=== PATIENT | male | born 1980 | race Caucasian/White ===

== ENCOUNTER 2022-04-18 07:28 | Emergency (ER) | payer OTHER, SELFPAY ==
[2022-04-18 07:32] VITALS: BP 163/104; PULSE 85; RESP 16; TEMP 36.6; O2SAT 99
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
== END 2022-04-18 09:06 | disposition home or self-care (01) ==
PROVIDERS: Emergency Provider Student in an Organized Health Care Education/Training Program
DX: M54.50 Low back pain, unspecified (principal); I10 Essential (primary) hypertension
CPT/HCPCS: 99283

== ENCOUNTER 2022-11-19 12:09 | Emergency (ER) | payer OTHER, SELFPAY ==
[2022-11-19 12:11] VITALS: BP 164/124; PULSE 119; RESP 20; TEMP 36.9; O2SAT 98
--- NOTE | 2022-11-19 12:30 | RT.EKG_ITS ---
APPROVED REPORT Exam: Resting ECG Reason for Exam: chest pain Patient Location: E HR:106 bpm ECG Measurements Heart Rate 106 AXIS LA 131 P 47 QRSd 92 QRS -7 QT 358 T 42 QTc 477 Conclusion Sinus tachycardia...rate> 99 Left atrial enlargement...P, P'>60mS, <-0.15mV V1 Probable left ventricular hypertrophy...multiple LVH criteria. Sinus. No STEMI. I have reviewed and interpreted ECG and agree with software generated interpretation.
--- NOTE | 2022-11-19 12:51 | W.ED.GENAD ---
Discharge Plan Disposition Patient Disposition: Home Condition: Improving Discharge Details Clinical Impression: COVID-19 Primary Care Provider: Luzma Weems ED Provider: Frida Nava Home Meds and New Rx's Prescriptions: Continued omeprazole 20 mg capsule,delayed release(DR/EC) 20 mg PO DAILY PRN propranolol 20 mg tablet 20 mg PO TID PRN loratadine [Claritin] 10 mg tablet 10 mg PO DAILY PRN (DME) syringe (disposable) 3 mL syringe See Rx Instructions .ROUTE Rx Instructions: Use for once weekly testosterone injection (DME) syringe with needle, safety 3 mL 22 gauge x 1 1/2 syringe See Rx Instructions .ROUTE Rx Instructions: For use with once weekly injection of testosterone losartan 50 mg Tablet 75 mg PO DAILY escitalopram oxalate 10 mg Tablet 10 mg PO DAILY hydrochlorothiazide 12.5 mg Tablet 12.5 mg PO DAILY testosterone cypionate 50 mg/mL Oil 200 mg IM QWEEK Rx Instructions: saturdays. Discharge Instructions Instructions: COVID-19 (Coronavirus Disease 2019) (ED) Additional Instructions: You tested positive for the COVID-19 virus today. The remainder of your blood tests and imaging today are reassuring and show no evidence of acute concerning or significant findings. Drink plenty of fluids and get plenty of rest. Alternate tylenol and motrin as needed and directed for pain. Follow-up with your primary care doctor in 1 week. Return to the emergency department with any worsening or new concerning symptoms. Stand Alone Forms: Work Release Discharge Data Discharge Physician: Frida Nava Medical Decision Making 42-year-old male who is unvaccinated for COVID presents with 3 weeks of generalized fatigue, body aches, dry cough and sore throat. Blood pressure high on arrival, 164/124. Heart rate 110s. He states he had an energy drink prior to arrival. He has normal respiratory rate and oxygen saturation and appears comfortable and nontoxic with no signs of respiratory distress. He is speaking in full sentences. No acute findings on ENT exam. Lungs clear bilaterally. Fluvid obtained on arrival and positive for COVID. Negative influenza and RSV. Considering patient's tachycardia and complaint of intermittent chest pain, will obtain screening labs and CT chest to rule out PE and give bolus IV fluids and IV Tylenol. EKG notes a rate of 106, sinus and no ischemic findings. Labs and imaging reviewed and unremarkable. Normal white blood cell count. Normal electrolytes. Troponin negative. CT chest negative for PE. Patient reassessed and he feels better and feels comfortable going home. Discussed with patient that he is outside the window for paxlovid and monoclonal antibody infusion no longer indicated recommended. Patient appears comfortable and in no acute distress. Advised to follow up with the primary care doctor for re-evaluation. Usual and customary return precautions given prior to discharge. Medical Records Medical records reviewed: Yes I reviewed the patient's medical records. Imaging Data Radiologic Study: Radiologist's impression: CT CHEST PE CTA CLINICAL HISTORY: ? chest pain, r/o PE. TECHNIQUE:? Imaging Protocol:? Axial CT angiography was performed with multi-slice acquisition and multi-planar reconstructions as well as axial, coronal and sagittal MIP reconstructions. CONTRAST MATERIAL:? Intravenous: Omnipaque 350 Contrast volume:100 ml COMPARISON:? No exams were available for comparison FINDINGS: Pulmonary Arteries: No evidence of filling defect to suggest pulmonary emboli. Tracheobronchial tree: Patent where visualized. Mediastinum and Esmer: No dominant adenopathy or fluid collection. Pulmonary parenchyma: No consolidation or dominant measurable mass. Pleura: No effusion or pneumothorax. Heart: The heart is not dilated. No coronary artery calcifications are seen. Aorta: Thoracic aorta non-dilated.? No aneurysm.? No dissection.? Upper abdomen:? Unremarkable. Bones: Unremarkable for age. Tubes, Catheters, and Lines: None IMPRESSION: No evidence of pulmonary embolism or other acute abnormality..? Lab Data Lab results reviewed: Yes I reviewed the patient's lab results. Labs: Laboratory Tests Range/Units 11/19/22 11/19/22 11/19/22 12:35 14:13 14:13 WBC (4.4-10.8) 10^3/uL 6.95 RBC (4.36-5.78) 10^6/uL 5.99 H Hgb (13.5-17.5) g/dL 12.6 L Hct (40.0-50.0) % 43.4 MCV (80-95) fL 73 L MCH (27.0-33.0) pg 21.0 L MCHC (32.0-36.0) % 29.0 L RDW (11.8-14.1) % 17.9 H Plt Count (130-400) 10^3/uL 260 MPV (8.0-11.0) fL 9.1 Immature Gran % 0.4 Neutrophils % 61.7 Lymphocytes % 25.9 Monocytes % 9.1 Eosinophils % 2.3 Basophils % 0.6 Nucleated RBC % (0.0-0.3) % 0.0 Absolute Neutrophils (1.2-6.7) 10^3/uL 4.29 Absolute Lymphocytes (1.2-3.4) 10^3/uL 1.80 Absolute Monocytes (0.1-0.8) 10^3/uL 0.63 Absolute Eosinophils (0.0-0.7) 10^3/uL 0.16 Absolute Basophils (0.0-0.2) 10^3/uL 0.04 RBC Morphology See Below Microcytosis 2+ Sodium (136-145) mmol/L 136 Potassium (3.5-5.1) mmol/L 3.5 Chloride (98-107) mmol/L 98 Carbon Dioxide (21.0-32.0) mmol/L 29.2 Anion Gap (3-11) mmol/L 8.8 BUN (7-18) mg/dL 14 Creatinine (0.70-1.30) mg/dL 1.1 Est GFR (CKD-EPI 2020) (mL/min/1.73m2) 84.89 Glucose (74-106) mg/dL 93 Calcium (8.5-10.1) mg/dL 9.0 Magnesium (1.8-2.4) mg/dL 2.2 Total Bilirubin (0.2-1.0) mg/dL 0.4 AST (15-37) U/L 35 ALT (16-63) U/L 40 Alkaline Phosphatase (46-116) U/L 71 Troponin I (<or=60) ng/L < 50 Total Protein (6.4-8.2) g/dL 9.1 H Albumin (3.4-5.0) g/dL 4.3 COVID-19 Source Nasopharynx SARS-CoV-2 (PCR) (Negative) Positive A Influenza Type A (PCR) (Negative) Negative Influenza Type B (PCR) (Negative) Negative RSV (PCR) (Negative) Negative ECG Data Attestation: I personally reviewed and interpreted this ECG (s) as follows: Interpretation: Rate of 106, sinus, normal intervals, no ischemic findings. HPI General Mode of arrival: ambulatory. Date/Time Provider Initiated Documentation: 11/19/22 12:10. Limitations to Documentation: no limitations. Information obtained by: patient. HPI Narrative: Patient is a 42-year-old male who presents to the ED with a complaint of fatigue, nasal congestion, cough and sore throat for the past 3 weeks. He states he is unvaccinated for COVID and has not tested himself for COVID or influenza. He states his cough is mainly dry. Patient also admits to occasional substernal and left-sided chest pain for the past few weeks but denies any at present. He denies any significant shortness of breath, leg pain or swelling, fever, abdominal pain, nausea, vomiting, diarrhea or urinary symptoms. Related Data Home Medications Medication Instructions Recorded Confirmed escitalopram oxalate 10 mg tablet 10 mg PO DAILY 04/18/22 11/19/22 hydrochlorothiazide 12.5 mg tablet 12.5 mg PO DAILY 04/18/22 11/19/22 losartan 50 mg tablet 75 mg PO DAILY 04/18/22 11/19/22 testosterone cypionate 50 mg/mL 200 mg IM QWEEK 04/18/22 11/19/22 intramuscular oil loratadine 10 mg tablet (Claritin) 10 mg PO DAILY PRN 08/30/22 11/19/22 omeprazole 20 mg capsule,delayed 20 mg PO DAILY PRN 08/30/22 11/19/22 release propranolol 20 mg tablet 20 mg PO TID PRN 08/30/22 11/19/22 syringe (disposable) 3 mL 08/30/22 syringe with needle, safety 3 mL 08/30/22 22 gauge x 1 1/2 Allergies Allergy/AdvReac Type Severity Reaction Status Date / Time bismuth subsalicylate Allergy Unverified 11/19/22 12:16 [From Pepto-Bismol] Latex, Natural Rubber Allergy Unverified 11/19/22 12:16 morphine Allergy Unverified 11/19/22 12:16 General Stated Complaint: RespSymp MARY JO: 4 Review of Systems All systems reviewed & are unremarkable except as noted in HPI and below Constitutional Constitutional: Reports as per HPI, Reports body ache(s), Denies chills, Reports fatigue and Denies fever(s) Eyes Eyes: Denies blurry vision ENT Ears, Nose, Mouth, and Throat: Denies dizziness, Reports sore throat and Denies throat swelling Cardiovascular Cardiovascular: Reports chest pain and Denies dyspnea Respiratory Respiratory: Reports cough and Denies dyspnea Gastrointestinal Gastrointestinal: Denies abdominal pain, Denies diarrhea and Denies vomiting Genitourinary Genitourinary: Denies hematuria and Denies dysuria Musculoskeletal Musculoskeletal: Denies back pain and Denies numbness Integumentary/Breasts Skin/Breast: Denies lesions and Denies rash Neurologic Neurologic: Denies dizziness, Denies localized weakness and Denies numbness Endocrine Endocrine: Reports fatigue Allergic/Immunologic Allergic/Immunologic: Denies throat swelling PFSH All Active Problems (Updated 11/19/22 @ 15:52 by Frida Nava DO) COVID-19 (Acute) Hypotestosteronism (Acute) Congenital anomaly of ear (Acute) Allergic rhinitis (Acute) Hypertension (Chronic) Social phobia (Acute) Anxiety (Chronic) Depression (Chronic) Hyperlipidemia (Acute) Medical History (Updated 11/19/22 @ 15:52 by Frida Nava DO) Gastrointestinal hemorrhage associated with intestinal diverticulitis Incisional hernia Surgical History (Updated 08/28/22 @ 12:06 by Aurelia Little) History of colectomy (10/17/16) History of hernia repair (11/26/17) Family History (Updated 08/30/22 @ 16:45 by Carolyn Borden) Mother Depression Hypertension Anxiety Father Diabetes Hypertension Social History (Updated 08/28/22 @ 11:48 by Aruelia Little) Smoking/Tobacco Use Status: Never Smoking risk assessment performed?: Yes Alcohol Intake: current Alcohol Intake frequency: 0-2 drinks per day Alcohol type: beer Drug use: Occasionally Substance use type: marijuana Details: CBD oil Adopted: No Caregiver/Support person: No Foster care: No Household members: spouse Housing: house Number of Children: 0 number of grandchildren: 0 Communication Needs: Corrective Lenses Education Level: high school Do you need help understanding health information?: Rarely 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 Pets and animals: Yes Pets and animals: cat(s) and dog(s) Sexually active: Yes Do you think of yourself as: straight/heterosexual Current gender identity: male What is your relationship status?: How often do you talk on the phone with friends or family?: never How often do you get together with friends or relatives?: never Panel score (0-1 are the most socially isolated patients): 1 NHANES result reviewed/action taken: No What type of physical activity do you participate in: none Marycarmen/Uatsdin: None Special marycarmen needs: No Seatbelt use: sometimes Helmet use: Yes Helmet use: always Drive intox or ride w/intox train driver: No Do you feel safe at home: Yes Do you feel safe in your relationship?: Yes Exam Const General: cooperative and no acute distress Orientation: alert, awake and oriented x3 HENMT Head: normal to inspection Ears: hearing grossly normal bilaterally, external ears normal and TM's normal bilaterally Face and sinus: normal facial exam Mouth: oral mucosae normal Throat: posterior oropharynx normal Eyes General: appearance normal, both eyes and all related structures Pupils: PERRL EOM: EOM intact bilaterally Neck Neck: normal visual inspection and No submandibular swelling Lymphatic: no lymphadenopathy noted Chest Chest: normal inspection of the chest and no tenderness Resp Effort & Inspection: normal respiratory effort and able to speak in complete sentences Auscultation: clear to auscultation bilaterally Cardio Rate: tachycardic Rhythm: regular rhythm GI Inspection: normal to inspection Palpation: soft Back/Spine/Pelvis Thoracic/Lumbar Spine: thoracic and lumbar spine normal to inspection Skin General skin exam: no rashes or lesions noted Neuro General: patient alert, patient awake and patient oriented x3 Cognition: normal cognition Speech: speech normal Motor: muscle tone normal throughout Sensory Exam: no sensory deficits noted Extrem General: full ROM Psych Appearance: grossly normal Mental Status: mental status grossly normal Speech and Movement: speech and movement normal Affect: normal affect Course Vital Signs Vital signs: Vital Signs Temperature 98.4 F 11/19/22 12:11 Pulse 119 H 11/19/22 12:11 Respiratory Rate 20 11/19/22 12:11 Blood Pressure 164/124 H 11/19/22 12:11 Pulse Oximetry 98 11/19/22 12:11 Temperature 98.4 F 11/19/22 12:11 Temperature Source Temporal Artery Scan 11/19/22 12:11 Pulse 119 H 11/19/22 12:11 Respiratory Rate 20 11/19/22 12:11 Blood Pressure 164/124 H 11/19/22 12:11 Blood Pressure Position Supine 11/19/22 12:11 Pulse Oximetry 98 11/19/22 12:11 Oxygen Delivery Method Room Air 11/19/22 12:11 Oxygen Flow Rate 0 11/19/22 12:11 Pain Level 1 11/19/22 12:11
[2022-11-19 13:23] VITALS: BP 139/98; PULSE 115; TEMP 36.7; O2SAT 98
[2022-11-19 13:38] LABS: Influenza A PCR Negative (Negative); Influenza B PCR Negative (Negative); RSV PCR Negative (Negative)
[2022-11-19 13:48] LABS: Source Nasopharynx
[2022-11-19 13:50] LABS: COVID-19 PCR Positive (Negative)
--- NOTE | 2022-11-19 14:00 | DI.CT_ITS ---
Exam(s) CT CHEST PE CTA EXAM: CT CHEST PE CTA CLINICAL HISTORY: chest pain, r/o PE. TECHNIQUE: Imaging Protocol: Axial CT angiography was performed with multi-slice acquisition and mu lti-planar reconstructions as well as axial, coronal and sagittal MIP reconstructions. CONTRAST MATERIAL: Intravenous: Omnipaque 350 Contrast volume:100 ml COMPARISON: No exams were available for comparison FINDINGS: Pulmonary Arteries: No evidence of filling defect to suggest pulmonary emboli. Tracheobronchial tree: Patent where visualized. Mediastinum and Esmer: No dominant adenopathy or fluid collection. Pulmonary parenchyma: No consolidation or dominant measurable mass. Pleura: No effusion or pneumothorax. Heart: The heart is not dilated. No coronary artery calcifications are seen. Aorta: Thoracic aorta non-dilated. No aneurysm. No dissection. Upper abdomen: Unremarkable. Bones: Unremarkable for age. Tubes, Catheters, and Lines: None IMPRESSION: No evidence of pulmonary embolism or other acute abnormality.. RADIATION DOSE DELIVERED: 500.54mGy.cm Total DLP DATA REPOSITORY: All CT scans at this facility are submitted to the National Radiology Data Registry (NRDR) Dose Index Registry (DIR) with the [employer] (A[employer]). RADIATION OPTIMIZATION: All CT scans at this facility use at least one of these dose optimization te chniques: automated exposure control; mA and/or kV adjustment per patient size (includes targeted exa ms where dose is matched to clinical indication); or iterative reconstruction.
[2022-11-19 14:20] LABS: Abs Immature Grans 0.03 10^3/uL (0.0-0.06); Absolute Basophil Count 0.04 10^3/uL (0.0-0.2); Absolute Eosinophil Count 0.16 10^3/uL (0.0-0.7); Absolute Monocyte Count 0.63 10^3/uL (0.1-0.8); Absolute Neutrophil Count 4.29 10^3/uL (1.2-6.7); Basophils % 0.6; Eosinophils % 2.3; HCT 43.4 % (40.0-50.0); HGB 12.6 g/dL (13.5-17.5); Immature Grans % 0.4; Lymphocytes % 25.9; MCV 73 fL (80-95); MPV 9.1 fL (8.0-11.0); Monocytes % 9.1; Neutrophils % 61.7; Platelet Count 260 10^3/uL (130-400); RBC 5.99 10^6/uL (4.36-5.78); RDW 17.9 % (11.8-14.1); RDW-SD 44.7 fL; WBC 6.95 10^3/uL (4.4-10.8)
[2022-11-19] MEDS: Normal Saline 1,000 ML 1000 ML IV (14:23)
[2022-11-19 14:33] LABS: Diff Comment RBC Morph Reviewed; Microcytosis 2+
[2022-11-19 14:47] LABS: ALT 40 U/L (16-63); AST 35 U/L (15-37); Albumin 4.3 g/dL (3.4-5.0); Alkaline Phosphatase 71 U/L (46-116); Anion Gap 8.8 mmol/L (3-11); BUN 14 mg/dL (7-18); Bilirubin, Total 0.4 mg/dL (0.2-1.0); CO2 29.2 mmol/L (21.0-32.0); CREATININE 1.1 mg/dL (0.70-1.30); Chloride 98 mmol/L (98-107); Estimated GFR 84.89 (mL/min/1.73m2); Glucose 93 mg/dL (74-106); Magnesium 2.2 mg/dL (1.8-2.4); Potassium 3.5 mmol/L (3.5-5.1); Sodium 136 mmol/L (136-145); Total Protein 9.1 g/dL (6.4-8.2); Troponin I < 50 ng/L (<or=60)
[2022-11-19] MEDS: Omnipaque 350 MG/ML 500 ML BTL-Imaging package IJ (15:26)
[2022-11-19] MEDS: Normal Saline Flush 10 ML SYR IVP (15:27)
[2022-11-19] MEDS: Normal Saline - Diluent 50 ML VIAL IV (15:27)
[2022-11-19] MEDS: ACETAMINOPHEN 1,000 MG/100 ML BTL 400 MG IVPB (15:44)
[2022-11-19 16:24] VITALS: BP 139/98; PULSE 115; TEMP 36.7; O2SAT 98
== END 2022-11-19 16:25 | disposition home or self-care (01) ==
PROVIDERS: Emergency Provider Physician Assistant; PCP Student in an Organized Health Care Education/Training Program
DX: U07.1 COVID-19 (principal); R00.0 Tachycardia, unspecified; Z28.310 Unvaccinated for COVID-19
CPT/HCPCS: 71275; 80053; 87637; 93005; 96361; 96374; 99285; 83735; 84484; 85025; 93010; J0131

== ENCOUNTER 2022-12-21 02:02 | Outpatient (CLI) | payer OTHER, SELFPAY ==
[2022-12-21 08:38] LABS: Abs Immature Grans 0.02 10^3/uL (0.0-0.06); Absolute Basophil Count 0.02 10^3/uL (0.0-0.2); Absolute Eosinophil Count 0.12 10^3/uL (0.0-0.7); Absolute Lymphocyte Count 1.78 10^3/uL (1.2-3.4); Absolute Monocyte Count 0.44 10^3/uL (0.1-0.8); Absolute Neutrophil Count 2.44 10^3/uL (1.2-6.7); Basophils % 0.4; Eosinophils % 2.5; HCT 41.6 % (40.0-50.0); HGB 11.8 g/dL (13.5-17.5); Immature Grans % 0.4; Lymphocytes % 36.9; MCH 20.7 pg (27.0-33.0); MCHC 28.4 % (32.0-36.0); MCV 73 fL (80-95); MPV 9.3 fL (8.0-11.0); Monocytes % 9.1; Neutrophils % 50.7; Platelet Count 215 10^3/uL (130-400); RBC 5.69 10^6/uL (4.36-5.78); RDW 18.6 % (11.8-14.1); RDW-SD 46.3 fL; WBC 4.82 10^3/uL (4.4-10.8)
[2022-12-21 09:23] LABS: ALT 43 U/L (16-63); AST 31 U/L (15-37); Albumin 4.1 g/dL (3.4-5.0); Alkaline Phosphatase 70 U/L (46-116); Anion Gap 9.1 mmol/L (3-11); BUN 10 mg/dL (7-18); Bilirubin, Total 0.6 mg/dL (0.2-1.0); CO2 29.9 mmol/L (21.0-32.0); CREATININE 1.1 mg/dL (0.70-1.30); Calcium 8.7 mg/dL (8.5-10.1); Calculated LDL 134 mg/dL (<100); Chloride 98 mmol/L (98-107); Cholesterol 208 mg/dL (<200); Estimated GFR 84.89 (mL/min/1.73m2); Glucose 103 mg/dL (74-106); HDL Cholesterol 36 mg/dL (40-60); Potassium 3.4 mmol/L (3.5-5.1); Sodium 137 mmol/L (136-145); Triglyceride 194 mg/dL (<150)
[2022-12-21 09:53] LABS: Microcytosis 1+
[2022-12-21 13:36] LABS: Lab Add On Test DONE
[2022-12-21 13:56] LABS: Iron 31 ug/dL (65-175); Total Iron Binding Capacity 495 ug/dL (250-450); Transferrin Sat 6 % (20-55)
[2022-12-21 14:09] LABS: Ferritin 12 ng/mL (26-388)
[2022-12-21 19:56] LABS: PSA, Screening 0.8 ng/mL (<=2.5)
[2022-12-24 11:11] LABS: HIV-1/2 Ag & Ab Screen Negative (Negative)
[2022-12-25 15:26] LABS: Hepatitis C Ab w Rflx HCV PCR Negative (Negative)
[2022-12-26 09:39] LABS: Testosterone, Total 1010 ng/dL (240-950)
== END 2022-12-21 02:03 | disposition home or self-care (01) ==
PROVIDERS: PCP Nurse Practitioner Family; Referring Provider Nurse Practitioner Family; Visit Provider Nurse Practitioner Family
DX: E29.1 Testicular hypofunction (principal); Z11.59 Encounter for screening for other viral diseases; Z51.81 Encounter for therapeutic drug level monitoring; D64.9 Anemia, unspecified; E78.5 Hyperlipidemia, unspecified; Z11.4 Encounter for screening for human immunodeficiency virus [HIV]
CPT/HCPCS: 36415; 80053; 80061; 84153; 84403; 86803; 87389; 82728; 83540; 83550; 85025

== ENCOUNTER 2023-03-01 01:42 | Outpatient (CLI) | payer OTHER, SELFPAY ==
[2023-03-01 13:56] LABS: Abs Immature Grans 0.02 10^3/uL (0.0-0.06); Absolute Basophil Count 0.03 10^3/uL (0.0-0.2); Absolute Eosinophil Count 0.17 10^3/uL (0.0-0.7); Absolute Lymphocyte Count 1.56 10^3/uL (1.2-3.4); Absolute Monocyte Count 0.41 10^3/uL (0.1-0.8); Absolute Neutrophil Count 2.44 10^3/uL (1.2-6.7); Basophils % 0.6; Eosinophils % 3.7; HGB 14.6 g/dL (13.5-17.5); Immature Grans % 0.4; Lymphocytes % 33.7; MCH 26.4 pg (27.0-33.0); MCHC 32.4 % (32.0-36.0); MCV 81 fL (80-95); Monocytes % 8.9; Neutrophils % 52.7; Platelet Count 144 10^3/uL (130-400); RBC 5.53 10^6/uL (4.36-5.78); RDW 18.7 % (11.8-14.1); RDW-SD 54.1 fL; WBC 4.63 10^3/uL (4.4-10.8)
[2023-03-01 15:24] LABS: Iron 119 ug/dL (65-175); Total Iron Binding Capacity 403 ug/dL (250-450); Transferrin Sat 30 % (20-55)
[2023-03-01 15:27] LABS: Ferritin 90 ng/mL (26-388)
[2023-03-06 16:08] LABS: Testosterone, Total 39 ng/dL (240-950)
== END 2023-03-01 01:43 | disposition home or self-care (01) ==
LOC: LBO 01:42
PROVIDERS: PCP Nurse Practitioner Family; Visit Provider Nurse Practitioner Family
DX: D64.9 Anemia, unspecified (principal); E29.1 Testicular hypofunction
CPT/HCPCS: 36415; 84403; 82728; 83540; 83550; 85025

== ENCOUNTER 2023-05-22 02:45 | Outpatient (CLI) | payer OTHER, SELFPAY ==
[2023-05-27 15:34] LABS: Testosterone, Total 791 ng/dL (240-950)
== END 2023-05-22 02:46 | disposition home or self-care (01) ==
LOC: LBO 02:46
PROVIDERS: PCP Nurse Practitioner Family; Visit Provider Nurse Practitioner Family
DX: E29.1 Testicular hypofunction (principal)
CPT/HCPCS: 36415; 84403